=== PATIENT | male | born 1975 | race Caucasian/White ===

== ENCOUNTER → 2018-05-16 | Outpatient (CLI) | payer OTHER ==
[~2018-05-16] MED LIST: LEVO75TA PO; MULT-658 PO; [UNRECOGNIZED DRUG - OTHER] PO; omeprazole PO
[2018-05-16 16:04] LABS: MICROSCOPIC NOT IND
[2018-05-16 16:06] LABS: BASOPHILS # (AUTO) 0.15 x10^3/uL (0-0.1); BASOPHILS % (AUTO) 2 % (0-1); EOSINOPHILS # (AUTO) 0.15 x10^3/uL (0-0.4); EOSINOPHILS % (AUTO) 2 % (1-7); LYMPHOCYTES # (AUTO) 2.12 x10^3/uL (1-3.4); LYMPHOCYTES % (AUTO) 28 % (22-44); MD NO; MEAN CORPUSCULAR HEMOGLOBIN 29.2 pg (27.5-34.5); MEAN CORPUSCULAR HGB CONC 33.8 g/dL (33.2-36.2); MEAN CORPUSCULAR VOLUME 86.5 fL (81-97); MEAN PLATELET VOLUME 8.4 fL (7.4-10.4); MONOCYTES # (AUTO) 0.57 x10^3/uL (0.2-0.8); MONOCYTES % (AUTO) 8 % (2-9); NEUTROPHILS # (AUTO) 4.62 x10^3/uL (1.8-6.8); NEUTROPHILS % (AUTO) 61 % (42-75); PLATELET COUNT 325 x10^3/uL (130-400); RED BLOOD COUNT 5.65 x10^6/uL (4.38-5.82); RED CELL DISTRIBUTION WIDTH 13.6 % (9.4-14.8)
[2018-05-16 16:07] LABS: CULTURE INDICATED? NO
[2018-05-16 16:15] LABS: INTERNATIONAL NORMALIZED RATIO 1.02 (0.93-1.1); PROTHROMBIN TIME 10.7 Seconds (9.6-11.5)
[2018-05-16 16:17] LABS: ANION GAP 6 mmol/L (5-15); CALCIUM 8.9 mg/dL (8.5-10.1); CHLORIDE 110 mmol/L (98-107); CREATININE 0.79 mg/dL (0.7-1.3)
== END | disposition home or self-care (01) ==
LOC: STAR 08:00
PROVIDERS: ATTEND Neurological Surgery
DX: Z01.818 Encounter for other preprocedural examination (principal); M48.061 Spinal stenosis, lumbar region without neurogenic claudication; R79.1 Abnormal coagulation profile
CPT/HCPCS: 36415; 71046; 80048; 81003; 85025; 85610; 85730; 93005

== ENCOUNTER 2018-05-23 07:34 | Observation (INO) | payer OTHER ==
[~2018-05-23] VITALS: Ht 188 cm; Wt 157.5 kg
[~2018-05-23 07:34] MED LIST changes: +BACITRACIN 50,000 UNIT ONE; +BUPIVACAINE 0.25% ONE; +BUPIVACAINE/PF-EPI 0.5% 1:200K ONE; +THROMBIN 20,000 UNIT VIAL TP ONE
[2018-05-23 08:17] VITALS: BP 134/88
[2018-05-23] MEDS ORDERED: LACTATED RINGERS 1,000 ML IV SCH (08:22)
[2018-05-23] MEDS ORDERED: MIDAZOLAM 1 MG/ML, 2ML ONE (09:15)
[2018-05-23] MEDS ORDERED: FENTANYL PF 250 MCG/5ML ONE (09:16)
[2018-05-23] MEDS ORDERED: REMIFENTANIL 2 MG ONE (09:44)
[2018-05-23] MEDS ORDERED: PROPOFOL 50 ML ONE (09:45)
[2018-05-23] MEDS ORDERED: ONDANSETRON 2MG/ML, 2ML ONE (10:03)
[2018-05-23] MEDS ORDERED: PHENYLEPHRINE 10 MG/ML ONE (10:03)
[2018-05-23] MEDS ORDERED: DEXAMETHASONE 4 MG/ML, 1ML ONE (10:03)
[2018-05-23] MEDS ORDERED: CEFAZOLIN 1,000 MG ONE (10:03)
[2018-05-23] MEDS ORDERED: SUGAMMADEX 200 MG/2 ML IVPush ONE (10:03)
[2018-05-23] MEDS ORDERED: ROCURONIUM 10 MG/ML,10ML ONE (10:03)
[2018-05-23] MEDS ORDERED: FENTANYL PF 100 MCG/2ML ONE (11:11)
[2018-05-23] MEDS ORDERED: ONDANSETRON 2MG/ML, 2ML IVPush PRN (12:00)
[2018-05-23] MEDS ORDERED: HYDROcodone/APAP 5/325 TABLET PO PRN (12:00)
[2018-05-23] MEDS ORDERED: D5%-0.9% NACL+KCL 20MEQ 1,000 ML IV SCH (12:00)
[2018-05-23] MEDS ORDERED: morphine SULFATE 10 MG/ML, 1ML IVPush PRN (12:00)
[2018-05-23] MEDS ORDERED: PROMETHAZINE 25 MG/ML, 1ML IM PRN (12:00)
[2018-05-23] MEDS ORDERED: CEFAZOLIN PMX 1GM/50ML 50 ML IVPB SCH (12:00)
[2018-05-23] MEDS ORDERED: HYDROcodone/APAP 10/325 MG TABLET PO PRN (12:00)
[2018-05-23] MEDS ORDERED: PHARMACY MAY ADJ FOR RENAL FX MC PRN (12:00)
[2018-05-23] MEDS ORDERED: METHOCARBAMOL 750 MG TABLET PO PRN (12:00)
[2018-05-23] MEDS ORDERED: OXYcodone/APAP 5/325MG TABLET PO PRN (12:00)
[2018-05-23] MEDS ORDERED: DIPHENHYDRAMINE 50 MG/ML, 1ML ONE (12:23)
[2018-05-23] MEDS ORDERED: HALOPERIDOL 5 MG/ML IV PRN (12:30)
[2018-05-23] MEDS ORDERED: HYDROmorphone 2 MG/ML, 1ML IVPush PRN (12:30)
[2018-05-23] MEDS ORDERED: DIPHENHYDRAMINE 50 MG/ML, 1ML IVPush PRN (12:30)
[2018-05-23] MEDS ORDERED: DIAZEPAM 5 MG/ML, 2ML IVPush PRN (12:30)
[2018-05-23] MEDS ORDERED: OXYcodone 5 MG/5 ML ORAL.SOL UDC PO PRN (12:30)
[2018-05-23] MEDS ORDERED: MEPERIDINE/PF 25MG/0.5ML IVPush PRN (12:30)
[2018-05-23] MEDS ORDERED: ACETAMINOPHEN 325 MG TABLET PO PRN (12:30)
[2018-05-23] MEDS ORDERED: PROMETHAZINE 25 MG/ML, 1ML IV PRN (12:30)
[2018-05-23] MEDS ORDERED: hydrALAzine 20 MG/ML, 1ML IV PRN (12:30)
[2018-05-23] MEDS ORDERED: FENTANYL PF 100 MCG/2ML IV PRN (12:30)
[2018-05-23] MEDS ORDERED: ALBUTEROL SULFATE 2.5 MG/3 ML NPPB PRN (12:30)
[2018-05-23] MEDS ORDERED: SODIUM CHLORIDE FLUSH 10ML SYR IVF SCH (21:00)
[2018-05-24] MEDS ORDERED: LEVOTHYROXINE 75 MCG TABLET PO SCH (06:00)
[2018-05-24] MEDS ORDERED: MULTIVITAMIN 1 TABLET PO SCH (09:00)
== END 2018-05-23 16:30 | disposition home or self-care (01) ==
LOC: OUT 07:34 → ORIP 11:53
PROVIDERS: ADMIT Neurological Surgery; ATTEND Neurological Surgery
DX: M48.061 Spinal stenosis, lumbar region without neurogenic claudication (principal); E66.01 Morbid (severe) obesity due to excess calories; M21.371 Foot drop, right foot; M48.07 Spinal stenosis, lumbosacral region; Z68.41 Body mass index [BMI] 40.0-44.9, adult
CPT/HCPCS: 63047; 63048; 72100; G0378; J0690; J1100; J1200; J2250; J2370; J2405; J2704; J3010; J3490; J7120